=== PATIENT | male | born 1980 | race Caucasian/White ===

== ENCOUNTER 2024-04-10 08:25 | Emergency (ER) | payer MEDICAID, SELFPAY ==
[2024-04-10 08:34] VITALS: BP 132/69; PULSE 80; RESP 18; TEMP 36.6; O2SAT 98; BMI 23.7
--- NOTE | 2024-04-10 08:40 | ED.MEDCLEAR ---
HPI - Medical Clearance General Chief complaint: Medical Clearance Stated complaint: Medical clearance Time Seen by Provider: 04/10/24 08:38 Source: patient Mode of arrival: ambulatory Limitations: no limitations History of Present Illness ED Provider: SWATI STEWARD PA-C HPI Narrative: 44 year old male presents to the ED today requesting urine drug test. He states that the court has requested that he be tested for any ilicit substances in order for him to seen his children. He denies illicit substance use. He denies any physical complaints at present. Related Information Allergies Allergy/AdvReac Type Severity Reaction Status Date / Time No Known Allergies Allergy Verified 04/10/24 08:35 Review of Systems Review of Systems: Yes all other systems are reviewed and are negative PMFSH Past Medical History Attestation statement: The following information was validated with the patient. Source: old records reviewed and nursing notes reviewed Social History Social History Advance Directives: No Do you have a plan to hurt others: No Plan Physical Exam Vital Signs: Vital Signs: Last Vital Signs Temp 97.9 F 04/10/24 09:22 Pulse 80 04/10/24 09:22 Resp 18 04/10/24 09:22 BP 132/69 04/10/24 09:22 Pulse Ox 98 04/10/24 09:22 BMI result Body Mass Index 23.7 Vital signs stable General: Well appearing, in no acute distress. Skin: Warm, dry, intact. No rashes or lesions. Head: Normocephalic, atraumatic. Cardiac: Chest wall symmetric Lungs: Normal respiratory effort without accessory muscle use Ext: Upper and lower extremities atraumatic, without tenderness, deformity, swelling or erythema Neuro: AOx3. Normal speech. Ambulating with steady gait. Psych: Appropriate mood and affect Course Course Course Narrative: UDS negative. Informed patient of results. I reiterated that the court may not accept these results. I cannot confirm that these urine results are accurate as I did not watch patient provide the sample. He verbalizes understanding. At this time, patient is stable for discharge home. Patient has remained stable throughout ED visit today. Patient is agreeable with disposition and stable for discharge. Medical Decision Making Medical Decision Making MDM Narrative: 44 year old male presents to the ED today requesting urine drug test. Vital signs stable. Afebrile. He is nontoxix appearing and in NAD. Physical exam benign. I did discuss UDS with patient. He provided a urine sample in the bathroom alone, without a ross carrier driver present. this sample was then sent to our lab here for UDS. I am unable to confirm that the urine that was collected from the patient is infact his, as I nor did the nurse/ horticultural technical officer watch him provide this sample. I did inform patient that the court may not accept these results as the urine sample was not supervised, collection was unwitnessed, and it was not collected at a dedicated testing facility. Awaiting results of UDS. Anticipate discharge home. Differential Diagnosis Differential Diagnoses: The differential diagnosis associated with the presentation includes as above. Admission/Observation Not indicated. Lab Data MDM Lab Attestation statement: I reviewed the patient's lab results. as above. Labs: Lab Results 04/10/24 Range/Units 08:40 Urine Opiates Screen Not Detected (Not Detect) Ur Buprenorphine Scrn Not Detected (Not Detect) ng/mL Ur Oxycodone Screen Not Detected (Not Detect) ng/mL Urine Methadone Screen Not Detected (Not Detect) ng/mL Urine Fentanyl Screen Not Detected (Not Detect) Ur Barbiturates Screen Not Detected (Not Detect) Ur Phencyclidine Scrn Not Detected (Not Detect) Ur Amphetamines Screen Not Detected (Not Detect) U Benzodiazepines Scrn Not Detected (Not Detect) Urine Cocaine Screen Not Detected (Not Detect) U Marijuana (THC) Screen Not Detected (Not Detect) Social Determinants Patient?s care significantly limited by Social Determinants of Health including: Other Social Determinant of Health Critical Care Time Critical Care Time Critical Care Time: No Discharge Plan Discharge Clinical Impression: Encounter for drug screening Patient Disposition: Home, Self-Care Additional Instructions: You presented to the ED today requesting a urine drug test. Your urine was negative for all substances. As discussed, we are not an official drug testing facility. Your urine collection was not monitored/ supervised. The court may require you to have repeat testing at an official drug testing facility. Please return to the ED with any new or worsening symptoms. In the case of an emergency call 911. Referrals: Jane Coughlin MD [Primary Care Provider] - Interventions: ED Discharge Assessment Last Done: 04/10/24 09:22 Discharge Date/Time: 04/10/24 09:24 Print Language: Algerian
[2024-04-10 08:57] LABS: Amphetamine Screen Urine Not Detected (Not Detect); Barbiturates, Urine Not Detected (Not Detect); Benzodiazepines Screen Urine Not Detected (Not Detect); Buprenorphine Scr Not Detected (Not Detect); Cannabinoid Screen Urine Not Detected (Not Detect); Cocaine Screen Urine Not Detected (Not Detect); Fentanyl, urine Not Detected (Not Detect); Methadone Screen, Urine Not Detected (Not Detect); Opiate Screen Urine Not Detected (Not Detect); Oxycodone Screen Urine Not Detected (Not Detect); Phencyclidine Screen Urine Not Detected (Not Detect)
[2024-04-10 09:22] VITALS: BP 132/69; PULSE 80; RESP 18; TEMP 36.6; O2SAT 98
== END 2024-04-10 09:24 | disposition home or self-care (01) ==
PROVIDERS: Emergency Provider Emergency Medicine; PCP Internal Medicine
DX: Z51.81 Encounter for therapeutic drug level monitoring (principal); Z79.899 Other long term (current) drug therapy
CPT/HCPCS: 80307; 99282